=== PATIENT | female | born 1990 | race Caucasian/White ===

== ENCOUNTER 2016-11-04 01:49 | Emergency (ER) | payer SELFPAY ==
[~2016-11-04] VITALS: Ht 162.6 cm; Wt 54.4 kg
[2016-11-04 01:55] VITALS: BP 122/80; PULSE 87; RESP 19; TEMP 98.7; O2SAT 99
[2016-11-04 02:45] VITALS: BP 120/68; PULSE 86; RESP 18; TEMP 98.7; O2SAT 99
== END 2016-11-04 02:45 | disposition home or self-care (01) ==
LOC: SED 01:49
DX: S96.911A Strain of unspecified muscle and tendon at ankle and foot level, right foot, initial encounter (principal); X58.XXXA Exposure to other specified factors, initial encounter; Y93.B9 Activity, other involving muscle strengthening exercises; Y92.39 Other specified sports and athletic area as the place of occurrence of the external cause; Y99.8 Other external cause status
CPT/HCPCS: 81025; 99284